=== PATIENT | male | born 1960 | race Caucasian/White ===

== ENCOUNTER 2025-02-19 11:52 | Emergency (ER) | payer OTHER ==
[~2025-02-19] VITALS: Ht 177.8 cm; Wt 88.6 kg
[2025-02-19 13:11] LABS: BASOPHILS % (AUTO) 0.3 % (0-1); EOSINOPHILS % (AUTO) 0 % (0-6); HEMATOCRIT 42.3 % (42.0-52.0); HEMOGLOBIN 14.4 g/dl (14.0-17.9); LYMPHOCYTES # (AUTO) 1.1 X10'3 (1.1-4.8); LYMPHOCYTES % (AUTO) 7.7 % (21-51); MEAN CORPUSCULAR HEMOGLOBIN 30.6 PG (27.0-31.0); MEAN CORPUSCULAR HGB CONC 33.9 g/dL (33.0-36.5); MEAN CORPUSCULAR VOLUME 90.3 FL (78-98); MEAN PLATELET VOLUME 8.7 FL (7.4-10.4); MONOCYTES # (AUTO) 0.9 X10'3 (0-0.9); MONOCYTES % (AUTO) 6.1 % (2-12); NEUTROPHILS # (AUTO) 12.3 X10'3 (1.8-7.7); NEUTROPHILS % (AUTO) 85.9 % (42-75); PLATELET COUNT 236 X10'3 (140-440); RED BLOOD COUNT 4.69 X10'6 (4.70-6.10); RED CELL DISTRIBUTION WIDTH 13.9 % (11.5-14.5); WHITE BLOOD COUNT 14.4 X10'3 (4.5-11.0)
[2025-02-19 13:22] LABS: BILIRUBIN,URINE NEGATIVE (Neg); CLARITY,URINE CLEAR (Clear); COLOR,URINE YELLOW (Yellow); GLUCOSE, URINE NEGATIVE (Neg); KETONES,URINE NEGATIVE (Neg); LEUKOCYTE ESTERASE ,URINE NEGATIVE (Neg); OCCULT BLOOD,URINE LARGE (Neg); PROTEIN,URINE 30 mg/dl (Neg); UROBILINOGEN,URINE 0.2 E.U/dL (0.2-1.0)
[2025-02-19 13:29] LABS: NITRITES, URINE NEGATIVE (Neg); UA COLLECTION TYPE VOIDED
[2025-02-19 13:39] LABS: ALANINE AMINOTRANSFERASE 37 U/L (12-78); ALBUMIN 3.8 G/DL (3.4-5.0); ALBUMIN/GLOBULIN RATIO 1.2 (1.1-1.5); ALKALINE PHOSPHATASE 67 IU/L (46-116); ANION GAP 12 (8-16); ASPARTATE AMINO TRANSFERASE 23 U/L (10-37); BILIRUBIN,TOTAL 0.8 MG/DL (0.1-1.0); BLOOD UREA NITROGEN 22 MG/DL (7-18); BUN/CREATININE RATIO 15.3 (10.0-20.0); CHLORIDE 105 MMOL/L (99-107); CREATININE 1.44 MG/DL (0.60-1.10); GLUCOSE 113 MG/DL (70-104); LIPASE 36 U/L (16-77); POTASSIUM 4.2 MMOL/L (3.5-5.1); SODIUM 144 MMOL/L (135-145); TOTAL CARBON DIOXIDE 27.4 MMOL/L (24-32); TOTAL PROTEIN 6.9 G/DL (6.4-8.2); eCRCL 54 ML/MIN; eGFR 49 ML/MIN
[2025-02-19 13:45] LABS: BACTERIA,URINE 2+ /HPF (Neg); RBC,URINE 20-50 /HPF (0-2); SPERM MANY /HPF (NEGATIVE); SQUAMOUS EPITHELIAL CELL,UR FEW /LPF (FEW); WBC,URINE 0-4 /HPF (0-4)
[2025-02-19 14:13] VITALS: BP 183/89; PULSE 69; O2SAT 99
[2025-02-19] MEDS ORDERED: proCHLORperazine 10 MG/2 ml inj IV ONE (14:25)
[2025-02-19] MEDS ORDERED: diphenhydrAMINE 50 mg/ml inj IV ONE (14:25)
--- NOTE | 2025-02-19 14:34 | Physician Documentation ---
History of Present Illness ~ Chief Complaint: Abdominal Pain w/vomiting Stated Complaint: BOWEL OBSTRUCTION Time Seen by MD: 14:19 Primary Medical Doctor: Ivory Mode of Arrival: POV, Ambulatory HPI This is a 65-year-old male with a medical history of hypertension, hyperlipidemia, hypothyroidism. He reports that he has had an onset of abdominal pain with nausea and vomiting for the last 48 hours. His symptoms come and go, and her made worse by eating. He denies any fevers or chills. He denies any black or bloody stools or diarrhea. Medication Reconciliation Allergies: Coded Allergies: No Known Allergies (Unverified , 02/19/25) Scheduled Tamsulosin Hcl* (Flomax*), 1 CAP PO QHS Scheduled PRN Hydrocodone Bit/Acetaminophen (Hydrocodone-Apap 10-325 Tablet), 1 TAB PO TID PRN PRN for pain Ondansetron 8mg ODT (Ondansetron Odt), 1 TAB PO TID PRN for nausea/vomiting Review of Systems ROS As stated above in the HPI, otherwise all systems are reviewed and negative. Physical Exam Vital Signs: Temperature: 98.1, Source: Oral, Heart Rate: 69, Respiratory Rate: 18, BP: 183/89, Pulse Oximetry: 99, Weight: 88.640 Oxygen Flow Rate: 0 Physical Exam General: Alert, no apparent distress. HEENT: PERRL, EOMI, no injection, moist mucous membranes. Neck: Full range of motion. Respiratory: Lungs clear, no respiratory distress. Chest: No accessory muscle use. Cardiovascular: Regular rate and rhythm, no murmurs. Gastrointestinal: Soft,TTP LLQ, nondistended. Bowels sounds present. Extremities: Normal range of motion, no deformity. Neurologic: Oriented x4. Psychiatric: Normal mood and affect. Skin: Normal color, warm and dry. No edema, no ecchymosis. Progress Results/Orders Results/Orders Orders - DULCE MARIA MENDEZ [employer] Saline Lock (02/19/25 14:21) Ct Abdomen Pelvis (02/19/25 14:33) Completed Orders - DULCE MARIA MENDEZ [employer] Morphine 4mg/Ml Inj. (Morphine Inj.) (02/19/25 14:25) Normal Saline 1000ml (Sodium Chloride 10 (02/19/25 14:25) Ondansetron Inj. (Zofran 4mg/2ml Vial) (02/19/25 14:35) Ct Abdomen Pelvis (02/19/25 14:33) Medications Received in ER Medications (Trade) Dose Ordered Sig/Delta Route PRN Reason Start Time Stop Time Status Last Admin Dose Admin (morphine inj.) 4 mg ONCE ONCE IV 02/19/25 14:25 02/19/25 14:26 DC 02/19/25 14:45 4 MG (sodium chloride 1000ml IV soln) 1,000 ml ONCE ONCE IVB 02/19/25 14:25 02/19/25 14:26 DC 02/19/25 14:45 1,000 ML (Zofran 4mg/2ml vial) 4 mg ONCE ONCE IV 02/19/25 14:35 02/19/25 14:36 DC 02/19/25 14:44 4 MG Vital Signs 02/19/25 02/19/25 02/19/25 02/19/25 12:05 14:13 14:16 14:45 Temp 98.1 98.1 Pulse 66 69 Resp 16 18 18 19 B/P (MAP) 167/104 183/89 (120) Pulse Ox 99 99 O2 Flow Rate 0 Laboratory Tests Test 02/19/25 12:10 02/19/25 12:35 Urine Specimen Description Voided Urine Color Yellow Urine Clarity Clear Urine pH 6.0 Urine Specific [place] 1.020 Urine Protein 30 H Urine Glucose (UA) Negative Urine Ketones Negative Urine Occult Blood Large H Urine Nitrite Negative Urine Bilirubin Negative Urine Urobilinogen 0.2 Urine Leukocyte Esterase Negative Urine RBC 20-50 Urine WBC 0-4 Urine Squamous Epithelial Cells Few Urine Bacteria 2+ Urine Sperm Many Urine Culture Indicated Not ind Volume Urine Centrifuged 10 ml Urine Comment White Blood Count 14.4 H Red Blood Count 4.69 L Hemoglobin 14.4 Hematocrit 42.3 Mean Corpuscular Volume 90.3 Mean Corpuscular Hemoglobin 30.6 Mean Corpuscular Hemoglobin Concent 33.9 Red Cell Distribution Width 13.9 Platelet Count 236 Mean Platelet Volume 8.7 Neutrophils (%) (Auto) 85.9 H Lymphocytes (%) (Auto) 7.7 L Monocytes (%) (Auto) 6.1 Eosinophils (%) (Auto) 0 Basophils (%) (Auto) 0.3 Neutrophils # (Auto) 12.3 H Lymphocytes # (Auto) 1.1 Monocytes # (Auto) 0.9 Eosinophils # (Auto) 0.0 Basophils # (Auto) 0.0 CBC Comment Sodium Level 144 Potassium Level 4.2 Chloride Level 105 Carbon Dioxide Level 27.4 Anion Gap 12 Blood Urea Nitrogen 22 H Creatinine 1.44 H Estimated GFR/1.73 m2 49 BUN/Creatinine Ratio 15.3 Glucose Level 113 H Calcium Level 9.0 Total Bilirubin 0.8 Aspartate Amino Transf (AST/SGOT) 23 Alanine Aminotransferase (ALT/SGPT) 37 Alkaline Phosphatase 67 Total Protein 6.9 Albumin 3.8 Globulin 3.1 Albumin/Globulin Ratio 1.2 Lipase 36 Chemistry Comments Medical Decision Making Additional Comments This is a 65-year-old male that presented to the emergency department with nausea vomiting and abdominal pain that began about 48 hours ago and has been episodic in nature. CT scan was pursued and showed a distal left ureteral stone measuring 5-6 mm. The patient will be sent home with pain medication, nausea medication, Flomax. It was discussed that he needs to stay well hydrated and should have his kidney function rechecked by his primary care provider as he was noted to have mildly reduced creatinine and GFR today. He is to return to the emergency department for severe pain, fever over 101, or any other concerns that he is getting worse rather than better. The patient and his are agreeable to this. Afebrile. Clean UA. Appropriate for d/c and outpatient management. Departure Time of Disposition: 16:16 Disposition: 01 HOME / SELF CARE / HOMELESS Impression: Primary Impression: Left ureteral stone Condition: Stable Discharge Instructions: Kidney Stones Additional Instructions: See your primary care provider sooner for a referral to a urologist. Take the prescribed medications: ondansetron for nausea, flomax daily at bedtime to help the stone pass, and hydrocodone as needed for pain. Your kidney function was slightly reduced today and this should be rechecked by your primary care. RETURN IF WORSE such as fever over 101 or pain unrelieved by the medications you were prescribed. Referrals: NO PRIMARY CARE PROVIDER (PCP) Prescriptions Hydrocodone Bit/Acetaminophen (Hydrocodone-Apap 10-325 Tablet) 10mg/325mg Tablet 1 TAB PO TID PRN PRN for pain for 5 Days, #15 TAB Prov: TEVIN AYALA DO 02/19/25 Tamsulosin Hcl* (Flomax*) 0.4 Mg Cap.sr.24h 1 CAP PO QHS for 30 Days, #30 CAP Prov: DULCE MARIA MENDEZ NP 02/19/25 Ondansetron 8mg ODT (Ondansetron Odt) 8 Mg Tab.rapdis 1 TAB PO TID PRN for nausea/vomiting, #10 TAB Prov: DULCE MARIA MENDEZ NP 02/19/25 Education Educated: Patient, Family Educated regarding: diagnosis, treatment, prognosis, need for follow up Signature Scribe Signature: no scribe Attestation: The note accurately reflects work and decisions made by me.Dulce Maria German NP 02/19/25 14:34 DULCE MARIA MENDEZ NP February 19, 2025 14:34
[2025-02-19] MEDS: ondansetron/PF 4mg/2ml inj IV ONE (14:44)
[2025-02-19 14:45] VITALS: RESP 19
[2025-02-19] MEDS: morphine 4 MG/ML inj SYRINge IV ONE (14:45)
[2025-02-19] MEDS: normal saline 1000ML IV soln IVB ONE (14:45)
--- NOTE | 2025-02-19 16:02 | RADIOLOGY REPORT ---
Exam: CT CT ABDOMEN PELVIS History: LLQ pain Comparison Study: None TECHNIQUE: Multidetector CT of the abdomen was performed from lung bases to pubic symphysis. Imaging was performed without IV contrast. Axial, coronal and sagittal multiplanar reformats were obtained fr om the axial data set by the technologist. Radiation Dose Information: CT Dose: CTDI volume is 22.18 mGy. Dose-length product is 1165.67 mGy*cm FINDINGS: Evaluation of solid organs is limited due to lack of intravenous contrast use. Findings: Lung Bases: No acute or significant lung base finding. Normal heart size. No pleural or pericardial effusion. Liver: The liver is normal in size. No focal lesions. Gallbladder and Biliary Tree: Unremarkable Spleen: Unremarkable Pancreas: The pancreas is grossly normal in appearance. Adrenal Glands: Unremarkable Kidneys: Possible mild left hydronephrosis with a 6-7 mm calculus in the distal left ureter. Recommen d follow-up study can not exclude that this is a pelvic phlebolith. Bladder: Grossly unremarkable for degree of distention. Bowel: The stomach is grossly normal in appearance. Small bowel and colon are normal in caliber and d istribution. The appendix is not visualized; however, no secondary findings of acute appendicitis id entified. Ascites: Absent Lymphadenopathy: No mesenteric, retroperitoneal or periportal lymphadenopathy. Abdominal Wall and Mesentery: Unremarkable. Vasculature: The visualized abdominal aorta is normal in size and caliber. Evaluation of abdominal a nd pelvic vessels is limited due to lack of intravenous contrast. Pelvic Organs: Unremarkable Musculoskeletal: No aggressive focal bony lesions, acute fractures or dislocation. Soft tissues: Unremarkable IMPRESSION: 1. Scattered diverticulosis. No free air no free fluid. 2. Questionable distal left ureteral calculus measure 6-7 mm. HS:Y 1. No nephrolithiasis or hydronephrosis Stool filled right and transverse colon. Radiation optimization: All CT scans at this facility use at least one of these dose optimization laureen hniques: automated exposure control mA and/or kV adjustment per patient size (includes targeted exam s where dose is matched to clinical indication) or iterative reconstruction.
[2025-02-19] MEDS ORDERED: TAMS-55 PO (16:12)
[2025-02-19] MEDS ORDERED: HYDR-3973 PO ×2 (16:12→16:15)
[2025-02-19] MEDS ORDERED: ONDA-245 PO (16:12)
[2025-02-19 17:40] VITALS: TEMP 98.1
== END 2025-02-19 17:00 | disposition home or self-care (01) ==
LOC: ER 11:53
DX: N20.1 Calculus of ureter (principal); E03.9 Hypothyroidism, unspecified; E78.5 Hyperlipidemia, unspecified; I10 Essential (primary) hypertension
CPT/HCPCS: 36415; 74176; 80053; 81001; 83690; 85025; 96361; 96374; 96375; 99285; J2270; J2405; J7030